=== PATIENT | female | born 1955 | race Caucasian/White ===

== ENCOUNTER 2016-08-29 09:27 | Day surgery (SDC) | payer OTHER ==
[2016-08-29 10:01] VITALS: BMI 27.4
[2016-08-29 10:40] VITALS: TEMP 97.8
[2016-08-29] MEDS ORDERED: Lactated Ringer's 500 ML IV ONE (10:40)
[2016-08-29] MEDS ORDERED: Lidocaine 1% Inj (20ml) ONE (10:41)
[2016-08-29] MEDS ORDERED: Propofol 10 mg/ml Inj (20 ML) ONE ×2 (10:41→10:55)
[2016-08-29 12:02] VITALS: O2SAT 97
[2016-08-29 12:26] VITALS: BP 116/64; PULSE 70; RESP 14
== END 2016-08-29 12:22 | disposition home or self-care (01) ==
LOC: C.ENDO 09:27
PROVIDERS: ATTEND Internal Medicine Gastroenterology
DX: K29.50 Unspecified chronic gastritis without bleeding (principal); R10.13 Epigastric pain; K64.8 Other hemorrhoids
CPT/HCPCS: 43239; 45380; 88305; 88313; 88342; J2704; J7120

== ENCOUNTER 2017-08-30 11:15 | Day surgery (SDC) | payer OTHER ==
[2017-08-28 11:01] VITALS: BMI 26.3
[2017-08-30 13:29] VITALS: TEMP 97.6
[2017-08-30] MEDS ORDERED: ceFAZolin IV 1 gm in Dextrose 1 GM/50 ML BAG IVPB ONE (16:02)
[2017-08-30] MEDS ORDERED: Bupivacaine 0.25% 20 ML INJ IJ ONE (16:02)
[2017-08-30] MEDS ORDERED: Propofol 10 mg/ml Inj (20 ML) ONE (16:17)
[2017-08-30] MEDS ORDERED: Midazolam 2 MG/2 ML VIAL ONE (16:17)
[2017-08-30] MEDS ORDERED: Albuterol HFA 90 mcg/actuation (8 g) ONE (16:40)
[2017-08-30] MEDS ORDERED: Dexamethasone 4 mg/1 ml IVP PRN (16:43)
[2017-08-30] MEDS ORDERED: HYDROmorphone 0.5 mg/0.5 ml ISec IVP PRN (16:43)
[2017-08-30] MEDS ORDERED: Lidocaine 1% 20 MG/2 ML PF AMP ONE (16:50)
[2017-08-30] MEDS ORDERED: Oxycodone/Acetaminophen 5/325 mg Tab PO PRN (17:14)
[2017-08-30 18:04] VITALS: RESP 16
[2017-08-30 18:59] VITALS: BP 121/51; PULSE 73; O2SAT 98
--- NOTE | 2017-08-31 08:56 | OP ---
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 PROCEDURE PERFORMED: Wide and deep excision (radical resection) 5 cm vascular and soft tissue tumors of right knee and leg. SURGEON: Mat Amin MD ANESTHESIA: Local sedation. BLOOD LOSS: 40 mL. POSTOP CONDITION: Stable. 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 She presents for elective removal. DESCRIPTION OF PROCEDURE: The patient was taken to the operating room, placed in the prone position, IV sedation was administered and the posterior knee and leg areas were prepped and draped. Attention was first turned to the mass in the popliteal fossa. A generous elliptical incision was made surrounding the 5 cm mass. It was carried down into the fascial layer. Bleeding was controlled using a Bovie. This specimen was completely removed and leaving the large tissue defect. It was irrigated with saline and full-thickness tissue flaps were raised including muscle and fascia. Counter incisions were made and advancement flap closures were performed with a heavy Monocryl, subcuticular Monocryl and glue. Attention was then turned to the posterior right leg. Again, an elliptical incision was made surrounding a 5-cm mass. It was carried all the way into the muscle and fascial layer. Bleeding was controlled using the Bovie. A large tissue defect resulted and again a full-thickness flap was raised and closed with heavy Monocryl, subcuticular Monocryl and glue. The patient tolerated the procedure well and returned to the recovery room in stable condition. Mat Amin MD
== END 2017-08-30 18:58 | disposition home or self-care (01) ==
LOC: C.SDS 11:15
PROVIDERS: ATTEND Surgery
DX: D18.01 Hemangioma of skin and subcutaneous tissue (principal)
CPT/HCPCS: 11406; 12032; 88305; J0690; J1885; J2001; J2250; J2704; J2765; J3010

== ENCOUNTER 2018-05-10 15:26 | Outpatient (CLI) | payer OTHER | END 2018-05-10 15:27 | disposition home or self-care (01) | LOC: C.RADIC 15:26 | DX: J40 Bronchitis, not specified as acute or chronic (principal) ==